=== PATIENT | female | born 1950 | race Caucasian/White ===

== ENCOUNTER 2017-12-15 09:43 | Emergency (ER) | payer MEDICARE ==
[2017-12-15 10:47] LABS: #Eosinphils 0.1 thou/uL (0.0-0.7); #Lymphocytes 1.5 thou/uL (1.20-3.40); #Monocytes 0.3 thou/uL (0.11-0.59); %Basophils 0.6 % (0.0-1.0); %Lymphocytes 31.2 % (21.0-51.0); %Monocytes 5.5 % (0.0-10.0); %Neutrophils 60.7 % (42.0-75.0); Hemoglobin 12.9 g/dL (12.0-16.0); Mean Corpuscular HGB CONC 33.5 g/dL (32.0-36.0); Mean Corpuscular Hemoglobin 32.3 pg (27.0-31.0); Mean Corpuscular Volume 96.3 fl (81.0-99.0); Platelet Count 228 thou/uL (130-400); RBC Distribution Width 10.8 % (11.5-14.5); White Blood Cell (WBC) Count 4.9 thou/uL (4.8-10.8)
[2017-12-15] MEDS ORDERED: Meclizine HCl 25 MG TAB ONE (11:06)
[2017-12-15] MEDS ORDERED: Ondansetron ODT 4 MG TAB ONE (11:11)
[2017-12-15 11:13] LABS: CKMB 0.6 ng/mL (0-6.6); Troponin I Less than 0.010 ng/mL (< 0.028)
--- NOTE | 2017-12-15 11:25 | RAD ---
AP VIEW CHEST: HISTORY: Dizziness. FINDINGS: AP view chest was obtained. The lungs are well aerated. No evidence of active intrathoracic disease is seen. No evidence of effusions, pneumonia, or pneumothorax is seen. IMPRESSION: Unremarkable AP view chest. POS: [facility]
[2017-12-15 11:26] LABS: Prothrombin Time 13.7 SEC (12.0-14.7)
--- NOTE | 2017-12-15 11:26 | CT ---
CT BRAIN: HISTORY: Dizziness. FINDINGS: Noncontrast-enhanced CT images of the brain obtained. CT brain demonstrates the brain to be unremarkable. No evidence of intracranial hemorrhages, strokes , or contusions seen. Ventricles are of normal size. IMPRESSION: Normal CT brain. POS: [facility]
[2017-12-15 11:35] LABS: Bilirubin Negative (Negative); Blood, Urine Negative (Negative); Clarity CLEAR (Clear); Glucose, Urine (Dipstick) Negative (Negative); Leukocyte Trace (Negative); Nitrite Negative (Negative); Protein, Urine (Dipstick) Negative (Neg-Trace); Specific Gravity, Urine 1.006 (1.002-1.036); Urobilinogen 0.2 mg/dL (0.2-1.0)
[2017-12-15 11:37] LABS: Bacteria/HPF None Seen HPF (None Seen); Hyaline Casts/LPF 0-3 HYALINE CAST LPF (0-3 Hyaline); RBC/HPF 0-3 HPF (0-3); Squamous Epithelial None Seen HPF (0-3); WBC/HPF None Seen HPF (0-3)
[2017-12-15 11:39] LABS: ALT (SGPT) 16 U/L (8-55); AST (SGOT) 22 U/L (5-34); Albumin 4.4 g/dL (3.4-4.8); Alkaline Phosphatase 60 U/L (40-150); Anion Gap 10 mmol/L (10-20); BUN (Urea Nitrogen) 25 mg/dL (9.8-20.1); Bilirubin, Total 0.6 mg/dL (0.2-1.2); CK (CPK) 53 U/L (29-168); Calc. Creatinine Clearance 0 mL/min (70-130); Calcium 9.7 mg/dL (7.8-10.44); Carbon Dioxide 30 mmol/L (23-31); Chloride 102 mmol/L (98-107); Estimated GFR-MDRD 65; Globulin 2.9 g/dL (2.4-3.5); Glucose 103 mg/dL (80-115); Magnesium 2.4 mg/dL (1.6-2.6); Potassium 4.4 mmol/L (3.5-5.1); Protein, Total 7.3 g/dL (6.0-8.3); Sodium 138 mmol/L (136-145)
--- NOTE | 2017-12-21 00:04 | EKG ---
Test Reason : Blood Pressure : / mmHG Vent. Rate : 049 BPM Atrial Rate : 049 BPM P-R Int : 154 ms QRS Dur : 084 ms QT Int : 470 ms P-R-T Axes : 074 030 055 degrees QTc Int : 424 ms Sinus bradycardia Possible Left atrial enlargement Borderline ECG Confirmed by HOPE CHAVARRIA ([id number]), order editor LEILA THOMAS ([id number]) on 12/21/2017 12:04:17 AM Referred By: Confirmed By:HOPE CHAVARRIA
== END 2017-12-15 13:07 | disposition home or self-care (01) ==
LOC: ERS 09:43
DX: R42 Dizziness and giddiness (principal); E03.9 Hypothyroidism, unspecified; E78.5 Hyperlipidemia, unspecified; I10 Essential (primary) hypertension; Z79.899 Other long term (current) drug therapy
CPT/HCPCS: 36415; 70450; 71045; 80053; 81003; 81015; 82553; 83735; 83880; 84484; 85025; 85610; 85730; 93005; Q0162

== ENCOUNTER 2022-03-30 08:44 | Emergency (ER) | payer MEDICARE ==
[2022-03-30 09:31] LABS: #Basophils 0.1 thou/uL (0.0-0.2); #Eosinphils 0.2 thou/uL (0.0-0.7); #Lymphocytes 1.6 thou/uL (1.20-3.40); #Monocytes 0.5 thou/uL (0.11-0.59); #Neutrophils 5.6 thou/uL (1.40-6.50); %Basophils 1.1 % (0.0-1.0); %Lymphocytes 19.8 % (21.0-51.0); %Monocytes 6.1 % (0.0-10.0); %Neutrophils 70.9 % (42.0-75.0); Hemoglobin 11.4 g/dL (12.0-16.0); Mean Corpuscular HGB CONC 34.4 g/dL (32.0-36.0); Mean Corpuscular Hemoglobin 33.7 pg (27.0-31.0); Mean Platelet Volume 6.7 fL (7.4-10.4); Platelet Count 283 thou/uL (130-400); RBC Distribution Width 11.4 % (11.5-14.5); Red Blood Cell (RBC) Count 3.39 mill/uL (4.20-5.40); White Blood Cell (WBC) Count 7.9 thou/uL (4.8-10.8)
[2022-03-30 09:47] LABS: ALT (SGPT) 14 U/L (8-55); AST (SGOT) 20 U/L (5-34); Albumin 4.4 g/dL (3.4-4.8); Alkaline Phosphatase 64 U/L (40-110); Anion Gap 14 mmol/L (10-20); BUN (Urea Nitrogen) 26 mg/dL (9.8-20.1); Bilirubin, Total 0.5 mg/dL (0.2-1.2); Calc. Creatinine Clearance 0 mL/min (70-130); Calcium 9.3 mg/dL (7.8-10.44); Carbon Dioxide 26 mmol/L (23-31); Chloride 103 mmol/L (98-107); Estimated GFR 74; Globulin 2.5 g/dL (2.4-3.5); Glucose 109 mg/dL (83-110); Potassium 4.2 mmol/L (3.5-5.1); Protein, Total 6.9 g/dL (5.8-8.1); Sodium 139 mmol/L (136-145)
[2022-03-30] MEDS ORDERED: Meclizine HCl 25 MG TAB ONE (10:31)
== END 2022-03-30 11:07 | disposition home or self-care (01) ==
LOC: ERS 08:44
DX: H81.10 Benign paroxysmal vertigo, unspecified ear (principal); I10 Essential (primary) hypertension; E78.5 Hyperlipidemia, unspecified; E03.9 Hypothyroidism, unspecified; Z79.899 Other long term (current) drug therapy
CPT/HCPCS: 36415; 80053; 84484; 85025; 93005

== ENCOUNTER 2024-07-05 12:49 | Outpatient (CLI) | payer MEDICARE | END 2024-07-05 12:50 | disposition home or self-care (01) | LOC: ULT 12:49 | PROVIDERS: ATTEND Urology | DX: R39.14 Feeling of incomplete bladder emptying (principal) | CPT/HCPCS: 76856 ==